=== PATIENT | female | born 1985 | race Caucasian/White ===

== ENCOUNTER → 2018-01-23 | Outpatient (CLI) | payer BC ==
[~2018-01-23] MED LIST: MTR600X PO; PRENTAB26 PO; VITAMIN D PO
== END | disposition home or self-care (01) ==
LOC: C.PAPS 16:33
PROVIDERS: ATTEND Obstetrics & Gynecology
DX: Z01.419 Encounter for gynecological examination (general) (routine) without abnormal findings (principal)

== ENCOUNTER → 2018-01-23 | Outpatient (CLI) | payer BC | END | disposition home or self-care (01) | LOC: C.LAB1850 13:56 | PROVIDERS: ATTEND Obstetrics & Gynecology | DX: O36.80X0 Pregnancy with inconclusive fetal viability, not applicable or unspecified (principal); Z3A.00 Weeks of gestation of pregnancy not specified ==

== ENCOUNTER 2020-10-03 19:02 | Observation (INO) ==
[2020-10-03] MEDS ORDERED: LACTATED RINGER S IV ONE (19:30)
[2020-10-03] MEDS ORDERED: MULTI VITAMIN INFUSION IV ONE (19:30)
--- NOTE | 2020-10-03 19:43 | History and Physical Report ---
DATE OF ADMISSION: 10/03/2020 CHIEF COMPLAINT: Severe nausea and vomiting, recent weight loss. HISTORY OF PRESENT ILLNESS: The patient is a 35-year-old 2, para 0. She had a previous ectopic . Last menstrual period was on 07/15/2020. She had a transvaginal ultrasound on 09/12/2020, which showed an intrauterine of 8 weeks 3 days. She has had problems with nausea and vomiting and attempted to be managed as an outpatient with Kylee and leonor Anderson. She was hospitalized for outpatient fluid therapy several days prior to admission where she got several units and she seemed to do well. Presently, she has been having persistent nausea and vomiting, been unable to take any fluids down for over 24 hours, had a significant weight loss, presently being admitted for fluid therapy. ALLERGIES: She has no known drug allergies. PAST SURGICAL HISTORY: She had T and A. She had wisdom teeth removed. She had an ectopic . PAST MEDICAL HISTORY: Hypothyroidism. SOCIAL HISTORY: No smoking. No excessive alcohol intake. No alcohol intake during . FAMILY HISTORY: Mom is 65, in good health. Father is 64, in good health. Seven brothers and sisters. Hypothyroidism and Asperger syndrome run in the family. REVIEW OF SYSTEMS: HEAD: No symptoms of frequent or severe headaches. EYES: No symptoms of blurred vision or double vision. PHYSICAL EXAMINATION: GENERAL: Well-developed, well-nourished 35-year-old white female, in moderate amount of distress. HEENT: Mucosa appeared dry. HEART: Had regular rhythm. S1, S2 are normal. LUNGS: Clear to auscultation and percussion. ABDOMEN: Soft and nontender. PELVIC: Deferred. MUSCULOSKELETAL: Revealed calf tenderness. IMPRESSIONS OF THIS CASE: Hyperemesis gravidarum, dehydration, status post wisdom teeth removal, status post ectopic , hypothyroidism.
[2020-10-03] MEDS: ONDANSETRON INJ 2 MG/ML 2 ML VIAL IV PRN (20:00)
[2020-10-03 20:01] LABS: Alanine Aminotransferase 8 U/L (12-78); Albumin Level 3.2 gm/dl (3.4-5.0); Aspartate Aminotransferase 9 U/L (15-37); BUN Creatinine Ratio 8.9 (10-20); Blood Urea Nitrogen 6 mg/dl (7-18); Calcium 9.2 mg/dl (8.5-10.1); Carbon Dioxide 23 mmol/L (21-32); Chloride 105 mmol/L (98-107); Est GFR (African American) 131.5; Est GFR (Non-African American) 113.4; Glucose 84 mg/dl (70-99); Potassium 3.7 mmol/L (3.5-5.1); Sodium 137 mmol/L (136-145)
[2020-10-03 20:04] LABS: Albumin Globulin Ratio 0.8 (0.9-2); Alkaline Phosphatase 55 U/L (45-117); Bilirubin,Total 0.3 mg/dl (0.2-1); Total Protein 7.2 gm/dl (6.4-8.2)
[2020-10-03] MEDS: ACETAMINOPHEN 500 MG TAB PO PRN (22:02)
[2020-10-04] MEDS: LACTATED RINGER S IV SCH ×2 (00:04→08:03)
[2020-10-04] MEDS: PYRIDOXINE HCL IV SCH ×2 (00:04→08:03)
[2020-10-04] MEDS: ACETAMINOPHEN 500 MG TAB PO PRN (04:46)
[2020-10-04] MEDS ORDERED: LEVOTHYROXINE SODIUM 75 MCG TABLET PO SCH (06:30)
[2020-10-04] MEDS: ONDANSETRON INJ 2 MG/ML 2 ML VIAL IV PRN ×2 (08:11→16:31)
--- NOTE | 2020-10-04 10:09 | Obstetrical Progress Note ---
Date of Service October 04, 2020 Assessment & Plan Admission and Anticipated Discharge Date Admission Date: October 03, 2020 Physical Exam Physical Exam: vomiting has decreased still has significant nausea on fluid replacement and iv zofran Results & Data ([facility]) Vital Signs (Past 12 Hours) Vital Signs Temp Pulse Resp BP Pulse Ox 10/04/20 08:37 36.8 C 65 20 105/71 100 10/04/20 04:40 36.8 C 67 16 101/68 10/04/20 00:10 36.8 C 70 16 102/63
--- NOTE | 2020-10-04 16:28 | Obstetrical Progress Note ---
Date of Service October 04, 2020 Assessment & Plan Admission and Anticipated Discharge Date Admission Date: October 03, 2020 Physical Exam Physical Exam: tolerating light diet voiding large amounts patient requests discharge Results & Data ([facility]) Vital Signs (Past 12 Hours) Vital Signs Temp Pulse Resp BP Pulse Ox 10/04/20 12:30 36.7 C 71 16 114/79 10/04/20 08:37 36.8 C 65 20 105/71 100 10/04/20 04:40 36.8 C 67 16 101/68
--- NOTE | 2020-10-05 04:02 | Discharge Summary (DS) ---
She is a 2, para 0. She had an ectopic removed in the past. She has been seen in our office for care. She had trouble with nausea and vomiting. We made attempts to resolve this with outpatient therapy. She has had Zofran as an outpatient. She has also had vitamin B6 and Unisom as an outpatient. She was hospitalized previously for fluid therapy. After the fluid therapy, she did well for several days and then she called in the evening and said that she had not been able to take any fluids or tolerate anything by mouth for at least 48-72 hours. She was panicky. She also had significant recent weight loss and we readmitted her to the hospital for fluid therapy. She was given Ringer's lactate 1 liter with multivitamins, another liter with vitamin B6. She was also monitored with daily weights, she had her electrolytes checked, and she was given Zofran 4 mg IV q. 4 hours p.r.n. for nausea and vomiting. After about 24 hours, she felt better and she was voiding in large amounts. She was well hydrated. She was able to tolerate a light diet. I also counseled her that when she goes home she should stick to a low fat bland diet. I went over some of the things that she could not eat. She had medications at home consisting of Zofran 8 mg tablets and Phenergan 25 mg suppositories and she was going to use them at home, and to follow up in our office for a routine visit.
== END 2020-10-04 17:50 | disposition home or self-care (01) ==
LOC: 4S2 19:02 → OPB 19:02 → 4S2 19:03

== ENCOUNTER 2021-04-09 20:59 | Inpatient (IN) ==
[2021-04-09] MEDS ORDERED: OXYTOCIN 30 UNITS/500 ML BAG IV PRN (21:40)
[2021-04-09 22:27] LABS: Hematocrit (blood only) 33.2 % (37-47); Mean Corpuscular Hemoglobin 30.3 pg (25-34); Mean Corpuscular Hgb Conc 33.1 g/dL (32-36); Mean Corpuscular Volume 91.5 fL (80-100); Mean Platelet Volume 10.6 fL (7.4-10.4); Platelet Count 315 K/uL (130-400); RDW Coefficient of Variation 14.1 % (11.5-14.5); RDW Standard Deviation 47.4 fL (36.4-46.3); Red Blood Count 3.63 M/uL (4.2-5.4); White Blood Count 7.66 K/uL (4.8-10.8)
[2021-04-09] MEDS ORDERED: miSOPROStoL 50 MCG TAB PO ONE (22:42)
[2021-04-10] MEDS ORDERED: miSOPROStoL 50 MCG TAB PO ONE (04:02)
[2021-04-10] MEDS ORDERED: miSOPROStoL 50 MCG TAB ONE (04:10)
[2021-04-10] MEDS ORDERED: OXYTOCIN 30 UNITS/500 ML BAG IV PRN ×2 (09:14→17:43)
[2021-04-10] MEDS ORDERED: ONDANSETRON 4 MG OD TAB PO PRN (09:28)
[2021-04-10] MEDS: LACTATED RINGER'S 1,000 ML IV PRN ×2 (09:49→13:31)
[2021-04-10] MEDS: LEVOTHYROXINE SODIUM 50 MCG TABLET PO SCH (11:44)
[2021-04-10] MEDS ORDERED: BUPIVACAINE 0.25% 30 ML VIAL ONE (13:00)
[2021-04-10] MEDS ORDERED: ePHEDrine sulfate 50 MG/ML AMP ONE (13:00)
[2021-04-10] MEDS ORDERED: fentaNYL citrate 100 MCG/2 ML VIAL ONE (13:00)
[2021-04-10] MEDS ORDERED: SODIUM CHLORIDE 0.9% INJ 10 ML VIAL ONE (13:00)
[2021-04-10] MEDS ORDERED: fentaNYL 2MCG/ML ROPIVACAINE 1.25MG/ML 100 ML BAG EPI ONE (13:01)
--- NOTE | 2021-04-10 13:04 | Anesthesiology Consultation ---
Date of Service April 10, 2021 Assessment & Plan (1) Encounter for pre-operative examination: Chart Review Chart Review: Acceptable Risk for Labor Epidural History Height/Weight Height: 4 ft 11 in Weight: 86.183 kg Allergies Allergy/AdvReac Type Severity Reaction Status Date / Time No Known Drug Allergies Allergy Unknown Verified 10/03/20 20:29 Medications Home Medications Medication Instructions Recorded Confirmed Last Taken levothyroxine 55 mcg PO DAILY 04/06/21 04/09/21 04/09/21 ondansetron HCl [Zofran] 4 mg PO Q6H 04/06/21 04/09/21 04/09/21 Active Medications Generic Name Dose Route Start Last Admin Trade Name Freq PRN Reason Stop Dose Admin Lactated Ringer's 1,000 mls @ 125 mls/hr 04/09/21 21:40 04/10/21 09:49 Lr IV 04/11/21 21:39 125 mls/hr .Q8H PRN Administration L&D Protocol Protocol Oxytocin 30 units in 500 mls @ 10 mls/hr 04/10/21 09:14 04/10/21 12:05 Pitocin IV 04/12/21 09:13 0.6 units/hr .Q24H PRN 10 mls/hr Labor Induction/Augmentation Titration Protocol 0.6 UNITS/HR Levothyroxine Sodium 50 mcg 04/10/21 11:15 04/10/21 11:44 Levothyroxine Sodium 50 Mcg Tablet PO 05/10/21 11:14 50 mcg DAILYBB HENRY Administration Past Medical History Medical History Ectopic Hyperemesis Hypothyroid Past Family History Family History Grandmother (Maternal) Ovarian cancer Sister Colonic polyp Denies family history of Breast cancer Colorectal cancer Past Surgical History Surgical History History of unilateral salpingectomy L for ruptured ectopic [place] teeth removed Social History Smoking Status: Never smoker Hx Alcohol Use: No Hx Substance Use: No Physical Exam Vital Signs Last Vital Signs Temp 36.7 C 04/10/21 10:53 Pulse 85 04/10/21 12:08 Resp 20 04/10/21 10:53 BP 141/93 H 04/10/21 12:08 Testing Laboratory Results 04/09/21 22:12
[2021-04-10] MEDS ORDERED: ONDANSETRON INJ 2 MG/ML 2 ML VIAL IV PRN (13:33)
[2021-04-10] MEDS ORDERED: fentaNYL 2MCG/ML ROPIVACAINE 1.25MG/ML 100 ML BAG EPI PRN (13:33)
[2021-04-10] MEDS ORDERED: NALOXONE HCL 0.4 MG/1 ML VIAL/CARP IV PRN (13:33)
[2021-04-10] MEDS ORDERED: NALOXONE HCL 1 MG in SODIUM CHLORIDE 0.9% 1000ML 1,000 ML IV PRN (13:33)
[2021-04-10] MEDS ORDERED: ePHEDrine sulfate 50 MG/ML AMP IV PRN (13:33)
[2021-04-10] MEDS ORDERED: ACETAMINOPHEN W/CODEINE #3 1 TAB PO PRN (17:43)
[2021-04-10] MEDS ORDERED: HYDROCORTISONE ACETATE 25 MG SUPP PR PRN (17:43)
[2021-04-10] MEDS ORDERED: ACETAMINOPHEN 325 MG TAB PO PRN (17:43)
[2021-04-10] MEDS ORDERED: BENZOCAINE 20% AER SPR 82.5 GM CAN EXT PRN (17:43)
[2021-04-10] MEDS ORDERED: SUPERCREAM 0.870% 15 GM JAR EXT PRN (17:43)
[2021-04-10] MEDS ORDERED: miSOPROStoL 100 MCG TAB PR ONE (17:43)
[2021-04-10] MEDS ORDERED: bisacodyL 10 MG SUPP PR PRN (17:43)
[2021-04-10] MEDS ORDERED: oxyCODONE/ACETAMINOPHEN 5mg/325mg TAB PO PRN (17:43)
[2021-04-10] MEDS ORDERED: DIPHTHERIA/TETANUS/PERTUSSIS 0.5 ML SYR/VIAL IM ONE (17:43)
--- NOTE | 2021-04-10 18:02 | Delivery Summary ---
DATE OF OPERATION: 04/10/2021 She is a 2, para 1, 1 previous spontaneous AB. Blood type A positive, group B strep negative, was followed in our office for care and delivery. She did well until about 36 weeks. Her pressures began to go up. She was followed by twice a week in the office put on decreased bed rest. She had an NST the Friday prior to delivery at hospital also had a biophysical profile at that time, it was good. However, check of her blood pressure Friday morning revealed that it continued to be significantly elevated, diastolics in about 95. She was sent up for induction of labor. On admission, her blood pressure was 141/74 and the induction was started. She was given p.o. Cytotec, about 4 plus hours later she was given another dose of p.o. Cytotec and about 5 hours after that, she was started on IV Pitocin. Contractions got hard. She got to about 5 cm, membranes ruptured surgically. There was meconium stained fluid and she requested and received epidural. She got good pain relief from the epidural, we continued to augment her contractions with IV Pitocin. She went to full dilatation, delivered a live via direct occiput anterior position over an intact perineum. was suctioned through the mouth and the nose. Shoulders were delivered without difficulty. Cord was allowed to pulse for a minute and then was clamped and cut by the father. Cord blood was taken. With IV Pitocin running, the placenta was removed intact. Inspection of the perineum revealed a second-degree laceration with superficial bilateral sulcus, both the sulcus laceration was repaired out to the hymenal ring. Then a deep suture was used to approximate the bulbocavernosus. Two interrupted sutures were used to approximate the perineal body, then a running subcuticular suture of Vicryl was used to approximate the perineal skin edges. Following this, vag exam including rectovaginal examination revealed no hematoma formation or sponge in the vagina, 800 mcg of Cytotec was placed rectally. Estimated blood loss was 300 mL. The patient tolerated the procedure well. I attest to the content of the Intraoperative Record and any orders documented therein. Any exception s are noted below.
--- NOTE | 2021-04-10 18:05 | Anesthesia Procedure Note ---
Date of Service April 10, 2021 Anesthesia Post Epidural Note Vital Signs Vital Signs: Temp Pulse Resp BP Pulse Ox 36.9 C 98 H 18 139/77 100 04/10/21 15:36 04/10/21 17:55 04/10/21 15:36 04/10/21 17:55 04/10/21 17:52 Notes Mental Status: alert / awake / arousable and participated in evaluation Nausea / Vomiting: adequately controlled Pain: adequately controlled Airway Patency, RR, SpO2: stable & adequate BP & HR: stable & adequate Hydration State: stable & adequate Neuraxial Anesthesia: was administered and sensory block is resolving Anesthetic Complications: no major complications apparent Epidural: Removed without complications and With tip intact
[2021-04-10] MEDS: IBUPROFEN 600 MG TAB PO PRN ×2 (18:47→23:05)
[2021-04-10] MEDS: DOCUSATE SODIUM 100 MG CAP PO SCH (21:26)
[2021-04-11] MEDS: IBUPROFEN 600 MG TAB PO PRN ×5 (03:16→20:14)
[2021-04-11] MEDS: LEVOTHYROXINE SODIUM 50 MCG TABLET PO SCH (06:15)
[2021-04-11] MEDS ORDERED: LEVOTHYROXINE SODIUM 50 MCG TABLET PO SCH (06:30)
[2021-04-11 06:32] LABS: Hematocrit (blood only) 31.4 % (37-47); Hemoglobin 10.4 g/dL (12.0-16.0); Mean Corpuscular Hemoglobin 30.5 pg (25-34); Mean Corpuscular Hgb Conc 33.1 g/dL (32-36); Mean Corpuscular Volume 92.1 fL (80-100); Mean Platelet Volume 10.6 fL (7.4-10.4); Platelet Count 287 K/uL (130-400); RDW Coefficient of Variation 14.2 % (11.5-14.5); RDW Standard Deviation 47.9 fL (36.4-46.3); Red Blood Count 3.41 M/uL (4.2-5.4); White Blood Count 12.79 K/uL (4.8-10.8)
[2021-04-11] MEDS: PRENATAL VITAMIN 1 TAB PO SCH (07:27)
[2021-04-11] MEDS: DOCUSATE SODIUM 100 MG CAP PO SCH ×2 (07:27→20:15)
[2021-04-11] MEDS: FERROUS SULFATE 325 MG TAB PO SCH (07:27)
--- NOTE | 2021-04-11 11:10 | Obstetrical Progress Note ---
Date of Service April 11, 2021 Assessment & Plan Admission and Anticipated Discharge Date Admission Date: April 09, 2021 Physical Exam Physical Exam: abdomen soft and non tender no calf tenderness ambulating well vaginal bleeding scant hgb 10.4 Results & Data ([facility]) Vital Signs (Past 12 Hours) Vital Signs Temp Pulse Resp BP Pulse Ox 04/11/21 07:15 36.9 C 87 18 138/92 98 04/11/21 03:10 37.0 C 83 18 143/88 H 99 04/10/21 23:20 37.3 C 88 18 137/92 97
[2021-04-11] MEDS ORDERED: bisacodyL 5 MG TABEC PO SCH (20:00)
[2021-04-12] MEDS: IBUPROFEN 600 MG TAB PO PRN ×2 (02:30→07:20)
[2021-04-12 06:04] LABS: Hematocrit (blood only) 30.8 % (37-47); Hemoglobin 10.2 g/dL (12.0-16.0)
[2021-04-12] MEDS: LEVOTHYROXINE SODIUM 50 MCG TABLET PO SCH (06:20)
[2021-04-12] MEDS: FERROUS SULFATE 325 MG TAB PO SCH (07:20)
[2021-04-12] MEDS: PRENATAL VITAMIN 1 TAB PO SCH (07:20)
[2021-04-12] MEDS: DOCUSATE SODIUM 100 MG CAP PO SCH (07:20)
--- NOTE | 2021-04-12 09:32 | Obstetrical Progress Note ---
Date of Service April 12, 2021 Assessment & Plan Admission and Anticipated Discharge Date Admission Date: April 09, 2021 Physical Exam Physical Exam: abdomen soft and non tender ambulating well no calf tenderness vaginal bleeding scant hgb 10.2 Results & Data ([facility]) Vital Signs (Past 12 Hours) Vital Signs Temp Pulse Resp BP Pulse Ox 04/12/21 08:30 37.1 C 81 16 146/88 H 98 04/11/21 23:07 36.9 C 79 16 138/87 97
--- NOTE | 2021-04-26 07:11 | Coding Query ---
CODING QUERY To promote full compliance with coding requirements relating to patient care, provider participation is requested in all cases of electrician apprentice uncertainty. Please assist us with the question(s) below: Coding Question(s): Dr. Dsouza, Hypertension is documented in the delivery report. Please clarify this diagnosis: ( ) Gestational hypertension with proteinuria ( x ) Gestational hypertension without proteinuria ( ) Pre-existing hypertension (pre-dates the ) ( ) Transient hypertension ( ) Other,please specify below: ( ) Clinically unable to determine Physician's Response(s): Thank you for your time, STEFFEN Markham, [facility]
== END 2021-04-12 15:00 | disposition home or self-care (01) | DRG 807 ==
LOC: 4S1 21:34 → 4S2 04-10 20:14

== ENCOUNTER 2022-12-11 07:16 | Inpatient (IN) ==
[2022-12-11] MEDS ORDERED: OXYTOCIN 30 UNITS/500 ML BAG IV PRN ×2 (07:20→11:42)
[2022-12-11] MEDS ORDERED: LIDOCAINE 1% LOCAL 20 ML VIAL INFIL PRN (07:20)
[2022-12-11] MEDS: LACTATED RINGER'S 1,000 ML IV PRN ×2 (07:25→08:34)
[2022-12-11] MEDS ORDERED: SODIUM CHLORIDE 0.9% INJ 10 ML VIAL ONE (07:39)
[2022-12-11] MEDS ORDERED: BUPIVACAINE 0.25% 30 ML VIAL ONE (07:39)
[2022-12-11] MEDS ORDERED: fentaNYL citrate 100 MCG/2 ML VIAL ONE (07:39)
[2022-12-11] MEDS ORDERED: ePHEDrine sulfate 50 MG/ML AMP ONE (07:39)
[2022-12-11] MEDS ORDERED: LIDOCAINE 2%/EPINEPHRINE 1:200,000 20 ML SDV ONE (07:39)
[2022-12-11] MEDS ORDERED: fentaNYL 2MCG/ML ROPIVACAINE 1.25MG/ML 100 ML BAG EPI ONE (07:40)
[2022-12-11] MEDS ORDERED: fentaNYL 2MCG/ML ROPIVACAINE 1.25MG/ML 100 ML BAG EPI PRN (07:50)
[2022-12-11] MEDS ORDERED: NALOXONE HCL 1 MG in SODIUM CHLORIDE 0.9% 1000ML 1,000 ML IV PRN (07:50)
[2022-12-11] MEDS ORDERED: diphenhydrAMINE 50 MG/ML VIAL IV PRN (07:50)
[2022-12-11] MEDS ORDERED: NALOXONE HCL 0.4 MG/1 ML VIAL/CARP IV PRN (07:50)
[2022-12-11] MEDS ORDERED: ONDANSETRON INJ 2 MG/ML 2 ML VIAL IV PRN (07:50)
[2022-12-11] MEDS ORDERED: NALBUPHINE HCL INJ 10 MG/ML AMP IV PRN (07:50)
[2022-12-11] MEDS ORDERED: ePHEDrine sulfate 50 MG/ML AMP IV PRN (07:50)
[2022-12-11 07:55] LABS: Hematocrit (blood only) 32.6 % (34.1-44.9); Hemoglobin 11.1 g/dl (12.0-16.0); Mean Corpuscular Hemoglobin 30.7 pg (25.0-34.0); Mean Corpuscular Volume 90.3 fL (80.0-100.0); Mean Platelet Volume 10.8 fL (9.4-12.3); Platelet Count 310 K/uL (130-400); RDW Standard Deviation 49.6 fL (36.4-46.3); Red Blood Count 3.61 M/uL (3.93-5.22); White Blood Count 8.77 K/ul (4.8-10.8)
--- NOTE | 2022-12-11 07:57 | Anesthesiology Consultation ---
Date of Service December 11, 2022 Assessment & Plan Chart Review Chart Review: Patient NOT seen in Pre Admission Testing and Acceptable Risk for Labor Epidural Consults Requested none ASA ASA2 Proposed Anesthesia Anesthesia Type: Labor Epidural and CSE Risk / Benefits Reviewed With: PT / POA / Parent / Guardian, Accepts Plan and Informed Consent Obtained History Height/Weight Weight: 90.265 kg Allergies Allergy/AdvReac Type Severity Reaction Status Date / Time No Known Drug Allergies Allergy Unknown Verified 03/13/22 10:14 Medications Home Medications Medication Instructions Recorded Confirmed Last Taken cholecalciferol (vitamin D3) 1,250 50,000 unit PO .WEEK #12 caps 02/18/22 12/11/22 Unknown mcg (50,000 unit) capsule levothyroxine 50 mcg tablet 50 mcg PO DAILY #30 tabs 06/14/22 12/11/22 12/11/22 prenat.vits,cheryl,bgt-adyh-qefqf 1 tab PO DAILY 12/11/22 12/11/22 12/11/22 Active Medications Generic Name Dose Route Start Last Admin Trade Name Freq PRN Reason Stop Dose Admin Lactated Ringer's 1,000 mls @ 125 mls/hr 12/11/22 07:20 12/11/22 07:25 Lr IV 12/13/22 07:19 999 mls/hr .Q8H PRN Administration L&D Protocol Protocol NPO Date Last Intake of Fluids: 12/11/22 Time Last Intake of Fluids: 06:00 Date Last Intake of Solids: 12/10/22 Time Last Intake of Solids: 20:00 Past Medical History Medical History Ectopic Hyperemesis Hypothyroid Ruptured left tubal ectopic causing hemoperitoneum (09/18/14) Exercise / Class Metabolic Activity II 4-5 Yardwork/Stairs/Walk up hill Past Family History Family History Grandmother (Maternal) Ovarian cancer Sister Colonic polyp Denies family history of Prostate cancer Myocardial infarction Breast cancer Colorectal cancer Past Surgical History Surgical History History of unilateral salpingectomy [place] teeth removed Past Anesthesia History No Hx of Anesthesia Complications and No Family Hx of Anesthesia Complications Social History Smoking Status: Never smoker Hx Alcohol Use: Yes Alcohol type: wine and hard liquor Hx Substance Use: No Physical Exam Vital Signs Last Vital Signs Temp 36.5 C 12/11/22 07:30 Pulse 80 12/11/22 07:53 Resp 18 12/11/22 07:19 BP 148/80 H 12/11/22 07:22 Pulse Ox 100 12/11/22 07:53 Testing Laboratory Results 12/11/22 07:37
[2022-12-11] MEDS ORDERED: PHYTONADIONE PED 1 MG/0.5ML AMP/SYRG ONE (11:09)
[2022-12-11] MEDS ORDERED: ERYTHROMYCIN OP OINT 1 GM PKT ONE (11:09)
--- NOTE | 2022-12-11 11:20 | Delivery Summary ---
DELIVERY NOTE: She is followed in our office for care and delivery. Her due date is 12/13/2022. She has had an uneventful course. She was induced with her first due to hypertension. So, she was placed on baby aspirin, which was stopped at about 36 weeks. Her pressures remained good. She eventually came in spontaneous labor. At the time of admission, she was 7-8 cm, on a simple pelvic exam, the membranes ruptured spontaneously. There was light to moderate meconium. She had an unstimulated labor. She was positioned with a peanut ball and she requested and received epidural. She got epidural when she was about 8 cm. Good pain relief from the epidural. The head was high until the very end. Once the cervix cleared the head started to come down. The head initially came down in an OP position and then she pushed we could see it rotated to the OA position and she delivered a live male . There was a nuchal cord x1, which was easily reduced over the head. was then delivered without any difficulty. Infant was somewhat limp at . Cord blood was stripped. Cord was clamped and cut and infant was handed off to the nurses. Following this, cord blood was taken. With IV Pitocin running, the placenta was removed intact. Inspection of the perineum revealed a second- degree laceration. This was repaired anatomically. The vaginal mucosa was approximated out and to beyond the hymenal ring with a running 2-0 Vicryl. A deep 2-0 Vicryl was used to approximate the bulbocavernosus muscle. Two interrupted sutures were used to bolster the rectal sphincter capsule. Another suture was used to approximate the perineal body. A running subcuticular suture was used to approximate the perineal skin edges. Following this, vaginal exam including rectovaginal examination revealed no hematoma formation or sponges in the vagina. Estimated blood loss was 200 mL. Job ID: [id number] [facility]
[2022-12-11] MEDS ORDERED: bisacodyL 10 MG SUPP PR PRN (11:42)
[2022-12-11] MEDS ORDERED: DIPHTHERIA/TETANUS/PERTUSSIS 0.5mL SYR/VIAL (Age 7+yrs) IM ONE (11:42)
[2022-12-11] MEDS ORDERED: BENZOCAINE 20% AER SPR 82.5 GM CAN EXT PRN (11:42)
[2022-12-11] MEDS ORDERED: ACETAMINOPHEN 325 MG TAB PO PRN (11:42)
[2022-12-11] MEDS ORDERED: HYDROCORTISONE ACETATE 25 MG SUPP PR PRN (11:42)
--- NOTE | 2022-12-11 12:39 | Anesthesia Procedure Note ---
Date of Service December 11, 2022 Anesthesia Post Epidural Note Vital Signs Vital Signs: Temp Pulse Resp BP Pulse Ox 36.5 C 75 18 126/72 100 12/11/22 07:30 12/11/22 11:33 12/11/22 07:19 12/11/22 11:33 12/11/22 08:48 Notes Mental Status: alert / awake / arousable and participated in evaluation Nausea / Vomiting: adequately controlled Pain: adequately controlled Airway Patency, RR, SpO2: stable & adequate BP & HR: stable & adequate Hydration State: stable & adequate Neuraxial Anesthesia: was administered and sensory block is resolving Anesthetic Complications: no major complications apparent and Pt Satisfied with anesthetic care Epidural: Removed without complications and With tip intact
[2022-12-11] MEDS: IBUPROFEN 600 MG TAB PO PRN ×3 (13:20→23:12)
[2022-12-11] MEDS: DOCUSATE SODIUM 100 MG CAP PO SCH (20:21)
[2022-12-12] MEDS: IBUPROFEN 600 MG TAB PO PRN ×2 (02:35→08:34)
[2022-12-12] MEDS ORDERED: LEVOTHYROXINE SODIUM 50 MCG TABLET PO SCH (06:30)
[2022-12-12 06:40] LABS: Hemoglobin 10.2 g/dl (12.0-16.0); Mean Corpuscular Hemoglobin 30.5 pg (25.0-34.0); Mean Corpuscular Hgb Conc 32.9 g/dL (32.0-36.0); Mean Corpuscular Volume 92.8 fL (80.0-100.0); Mean Platelet Volume 10.9 fL (9.4-12.4); Platelet Count 254 K/uL (130-400); RDW Coefficient of Variation 15.1 % (11.5-14.5); RDW Standard Deviation 51.6 fL (36.4-46.3); Red Blood Count 3.34 M/uL (4.20-5.40); White Blood Count 8.28 K/ul (4.8-10.8)
[2022-12-12] MEDS ORDERED: PRENATAL VITAMIN 1 TAB PO SCH (08:00)
--- NOTE | 2022-12-12 08:21 | Obstetrical Progress Note ---
Date of Service December 12, 2022 Assessment & Plan Admission and Anticipated Discharge Date Admission Date: December 11, 2022 Subjective abdomen soft and non tender no calf tenderness ambulating well vaginal bleeding scant hgb 10.2 Results & Data ([facility]) Vital Signs (Past 12 Hours) Vital Signs Temp Pulse Resp BP O2 Del Method 12/12/22 03:05 36.9 C 80 18 130/85 Room Air 12/12/22 00:00 36.9 C 76 16 123/77 Room Air 12/11/22 20:25 36.6 C 86 16 116/76 Room Air
[2022-12-12] MEDS: DOCUSATE SODIUM 100 MG CAP PO SCH (08:34)
[2022-12-12] MEDS ORDERED: bisacodyL 5 MG TABEC PO SCH (20:00)
--- NOTE | 2022-12-25 10:19 | Coding Query ---
CODING QUERY To promote full compliance with coding requirements relating to patient care, provider participation is requested in all cases of regional marketing manager uncertainty. Please assist us with the question(s) below: Coding Question(s): please document weeks of gestation 40 weeks gestation Physician's Response(s): Thank you Stefaniebianca Salgado Principal Diagnosis: "that condition established after study, to be chiefly responsible for occasioning the admission of the patient to the hospital for care." Co-Existing Principal Diagnosis: "when two or more diagnoses equally meet the criteria for principal diagnosis as determined by the circumstances of admission, diagnostic work up, and/or therapy provided, and the Alphabetic Index, Tabular List, or another coding guideline does not provide sequencing direction, any one of the diagnoses may be sequenced first." "When the physician has documented what appears to be a current diagnosis in the body of the record, but has not included the diagnosis in the final diagnostic statement, the physician should be asked whether the diagnosis should be added." ([facility] 2 QTR90. p3-4) [place]
== END 2022-12-12 13:45 | disposition home or self-care (01) | DRG 807 ==
LOC: OPB 07:16 → 4S1 07:18 → 4E2 12:50